=== PATIENT | female | born 1955 | race Two or more races ===

== ENCOUNTER 2018-10-02 22:38 | Emergency (ER) | payer SELFPAY ==
[~2018-10-02] VITALS: Ht 154.9 cm; Wt 73.6 kg
--- NOTE | 2018-10-02 23:15 | NUR ---
PT BIBFAMILY C/O NON RADIATING MID EPIGASTRIC PAIN X2 WEEKS. PT DENIES SOB, CHEST PAIN, N/V/D, DYSURIA. PT AAOX4. RESPIRATIONS EVEN AND UNLABORED. SKIN WARM AND INTACT. NO ACUTE DISTRESS NOTED AT THIS TIME. PT PLACED ON MONITOR, WILL CONTINUE TO MONITOR
--- NOTE | 2018-10-02 23:30 | NUR ---
MD AT BEDSIDE FOR EVALUATION
[2018-10-02] MEDS ORDERED: LIDOCAINE VISCOUS 2% UD 15 ML UDC ONE (23:48)
[2018-10-02] MEDS ORDERED: MAG HYDROX/AL HYDROX/SIMETH 30 ML UDC ONE (23:48)
--- NOTE | 2018-10-02 23:51 | NUR ---
ADVERTISING COPYWRITER AT BEDSIDE FOR BLOOD DRAW
[2018-10-03] MEDS ORDERED: LIDOCAINE VISCOUS 2% UD 15 ML UDC MM ONE
[2018-10-03] MEDS ORDERED: MAG HYDROX/AL HYDROX/SIMETH 30 ML UDC PO ONE
[2018-10-03 00:09] LABS: BASOPHILS % (AUTO) 0.5 % (0.0-2.0); EOSINOPHILS % (AUTO) 2.9 % (0.0-6.0); HEMATOCRIT 42 % (33-45); HEMOGLOBIN 13.9 g/dL (11.5-14.8); LYMPHOCYTES # (AUTO) 2.9 /CMM (0.8-4.8); MEAN CORPUSCULAR HGB CONC 34 g/dl (31.0-36.0); MEAN CORPUSCULAR VOLUME 93 fL (82-100); MONOCYTES # (AUTO) 0.6 /CMM (0.1-1.30); MONOCYTES % (AUTO) 7.9 % (2.0-12.0); NEUTROPHILS # (AUTO) 3.8 /CMM (1.8-8.9); NEUTROPHILS % (AUTO) 50.7 % (43.0-81.0); PLATELET COUNT (AUTO) 210 /CMM (150-450); RED BLOOD CELL COUNT(AUTO) 4.48 MIL/uL (4.0-5.2); WHITE BLOOD COUNT (AUTO) 7.6 K/uL (4.3-11.0)
[2018-10-03 00:17] LABS: CALCIUM, SERUM 9.1 mg/dL (8.5-10.1); CREATININE 0.7 mg/dL (0.6-1.3); POTASSIUM 4.1 mmol/L (3.5-5.1)
[2018-10-03 00:23] LABS: ALBUMIN 3.7 g/dL (3.4-5.0); BILIRUBIN,DIRECT 0.1 mg/dL (0.0-0.2); BILIRUBIN,TOTAL 0.3 mg/dL (0.2-1.0); TOTAL PROTEIN, SERUM 8.1 g/dL (6.4-8.2)
[2018-10-03] MEDS ORDERED: CT SWABBABLE VALVE TRANS SET 1 EA INFUS.SET MC ONE (01:06)
[2018-10-03] MEDS ORDERED: IV NS 0.9% 250 ML IV ONE (01:06)
[2018-10-03] MEDS ORDERED: IOHEXOL-300 100 ML VIAL IV ONE (01:07)
--- NOTE | 2018-10-03 01:42 | NUR ---
Ángel brown in [facility] - 10/03/18 at 0145 by JOHN PT RETURNED FROM RADIOLOGY
--- NOTE | 2018-10-03 01:45 | NUR ---
PT BROUGHT BY RADIOLOGY FOR CT
--- NOTE | 2018-10-03 01:58 | NUR ---
PT RETURNED FROM CT
--- NOTE | 2018-10-03 03:28 | NUR ---
Patient discharged to home in stable condition. Written and verbal after care instructions given. Patient verbalizes understanding of instruction. IV removed. Catheter intact and site benign. Pressure and 4x4 applied to site. No bleeding noted. Pt ambulatory with a steady gait
[2018-10-03 03:29] VITALS: BP 132/89
== END 2018-10-03 03:30 | disposition home or self-care (01) ==
LOC: ER 22:43
DX: R74.8 Abnormal levels of other serum enzymes (principal); R79.89 Other specified abnormal findings of blood chemistry; F17.200 Nicotine dependence, unspecified, uncomplicated; Z98.890 Other specified postprocedural states
CPT/HCPCS: 36415; 74177; 80048; 80076; 83690; 85025; 93005; 99284; A4606; J7050; Q9967